=== PATIENT | female | born 1955 | race Native Hawaiian/Other Pacific Islander ===

== ENCOUNTER 2017-10-28 08:32 | Outpatient (CLI) | payer BC | END 2017-10-28 19:18 | disposition home or self-care (01) | LOC: MAMMO 08:32 | DX: Z12.31 Encounter for screening mammogram for malignant neoplasm of breast (principal) ==

== ENCOUNTER 2018-11-11 15:19 | Outpatient (CLI) | payer BC | END 2018-11-11 22:55 | disposition home or self-care (01) | LOC: MAMMO 15:19 | DX: Z12.31 Encounter for screening mammogram for malignant neoplasm of breast (principal) ==

== ENCOUNTER 2019-11-13 09:58 | Outpatient (CLI) | payer BC | END 2019-11-13 19:28 | disposition home or self-care (01) | LOC: MAMMO 09:58 | DX: Z12.31 Encounter for screening mammogram for malignant neoplasm of breast (principal) ==

== ENCOUNTER 2020-12-26 09:59 | Outpatient (CLI) | payer BC | END 2020-12-26 19:17 | disposition home or self-care (01) | LOC: MAMMO 09:59 | PROVIDERS: ATTEND Obstetrics & Gynecology | DX: Z12.31 Encounter for screening mammogram for malignant neoplasm of breast (principal) ==

== ENCOUNTER 2021-12-28 10:14 | Outpatient (CLI) | payer OTHER | END 2021-12-28 19:29 | disposition home or self-care (01) | LOC: MAMMO 10:14 | PROVIDERS: ATTEND Obstetrics & Gynecology | DX: Z12.31 Encounter for screening mammogram for malignant neoplasm of breast (principal) ==

== ENCOUNTER 2022-01-02 10:59 | Outpatient (CLI) | payer OTHER | END 2022-01-02 18:58 | disposition home or self-care (01) | LOC: RAD 10:59 | PROVIDERS: ATTEND Internal Medicine | DX: M54.2 Cervicalgia (principal) ==

== ENCOUNTER 2022-09-12 08:53 | Outpatient (CLI) | payer OTHER | END 2022-09-12 18:58 | disposition home or self-care (01) | LOC: MAMMO 08:53 | PROVIDERS: ATTEND Obstetrics & Gynecology | DX: N60.11 Diffuse cystic mastopathy of right breast (principal); N60.12 Diffuse cystic mastopathy of left breast; N64.4 Mastodynia | CPT/HCPCS: G0279 ==

== ENCOUNTER 2023-01-03 10:26 | Outpatient (CLI) | payer OTHER | END 2023-01-03 17:00 | disposition home or self-care (01) | LOC: MAMMO 10:26 | PROVIDERS: ATTEND Obstetrics & Gynecology | DX: M81.0 Age-related osteoporosis without current pathological fracture (principal); Z12.31 Encounter for screening mammogram for malignant neoplasm of breast ==

== ENCOUNTER 2023-05-16 12:04 | Outpatient (CLI) | payer OTHER | END 2023-05-16 19:38 | disposition home or self-care (01) | LOC: LABW 12:04 | PROVIDERS: ATTEND Internal Medicine | DX: R05.3 Chronic cough (principal) ==